=== PATIENT | female | born 1970 | race African-American/Black ===

== ENCOUNTER → 2020-06-19 | Outpatient (CLI) | payer SELFPAY ==
[2020-06-19 09:53] LABS: ALBUMIN 4.6 g/dL (3.5-5.0); ALKALINE PHOSPHATASE 63 U/L (38-126); ANION GAP 7 (5-19); ASPARTATE AMINO TRANSFERASE 28 U/L (14-36); BILIRUBIN,DIRECT 0.1 mg/dL (0.0-0.4); BILIRUBIN,TOTAL 0.5 mg/dL (0.2-1.3); BLOOD UREA NITROGEN 11 mg/dL (7-20); CALCIUM 10.3 mg/dL (8.4-10.2); CARBON DIOXIDE 31 mmol/L (22-30); CHLORIDE 103 mmol/L (98-107); CHOLESTEROL 242.57 mg/dL (0-200); GLUCOSE 114 mg/dL (75-110); POTASSIUM 4.2 mmol/L (3.6-5.0); TOTAL PROTEIN 7.8 g/dL (6.3-8.2); TRIGLYCERIDES 58 mg/dL (<150)
[2020-06-19 10:00] LABS: ABSOLUTE BASOPHILS # (AUTO) 0.1 10^3/uL (0.0-0.2); ABSOLUTE LYMPHOCYTES (AUTO) 1.3 10^3/uL (0.5-4.7); ABSOLUTE MONOCYTES (AUTO) 0.2 10^3/uL (0.1-1.4); ABSOLUTE NEUT (AUTO) 1.7 10^3/uL (1.7-8.2); BASOPHILS % (AUTO) 1.6 % (0-2); EOSINOPHILS % (AUTO) 1.4 % (0-6); HEMOGLOBIN 11.5 g/dL (12.0-15.5); LYMPHOCYTES % (AUTO) 39.5 % (13-45); MEAN CORPUSCULAR HEMOGLOBIN 25.2 pg (27.0-33.4); MEAN CORPUSCULAR HGB CONC 31.9 g/dL (32.0-36.0); MEAN CORPUSCULAR VOLUME 79 fl (80-97); MONOCYTES % (AUTO) 7.4 % (3-13); RED BLOOD COUNT 4.57 10^6/uL (3.72-5.28); RED CELL DISTRIBUTION WIDTH 16.1 % (11.5-14.0); SEGMENTED NEUTROPHILS % (AUTO) 50.1 % (42-78); TOTAL CELLS COUNTED % (AUTO) 100 %; WHITE BLOOD COUNT 3.3 10^3/uL (4.0-10.5)
[2020-06-19 10:04] LABS: DIRECT LDL 86 mg/dL (<100)
[2020-06-19 10:17] LABS: PLATELET COUNT 282 10^3/uL (150-450)
[2020-06-20 07:12] LABS: FOLLICLE STIMULATING HORMONE 93.1 mIU/mL (.); LUTEINIZING HORMONE 48.7 mIU/mL (.)
== END ==
LOC: LAB 09:10
PROVIDERS: ATTEND Obstetrics & Gynecology
DX: Z11.51 Encounter for screening for human papillomavirus (HPV) (principal); Z12.4 Encounter for screening for malignant neoplasm of cervix; Z13.220 Encounter for screening for lipoid disorders; Z13.0 Encounter for screening for diseases of the blood and blood-forming organs and certain disorders involving the immune mechanism; Z13.1 Encounter for screening for diabetes mellitus; Z13.6 Encounter for screening for cardiovascular disorders; N95.1 Menopausal and female climacteric states
CPT/HCPCS: 36415; 80053; 80061; 82306; 82670; 83001; 83002; 83036; 84443; 85025; 87624; 88142

== ENCOUNTER → 2020-06-21 | Outpatient (CLI) | payer SELFPAY ==
[~2020-06-21] MED LIST: COVID-19 VACCINE (PFIZER)/PF 30 MCG/0.3 ML VIAL IM ONE; EPINEPHRINE INJ/PF 1 MG/1 ML AMPULE IM PRN
== END ==
LOC: EMPHEALTH 10:28
PROVIDERS: ATTEND Internal Medicine
DX: Z23 Encounter for immunization (principal)
CPT/HCPCS: 91300

== ENCOUNTER → 2020-07-10 | Outpatient (CLI) | payer SELFPAY | LOC: EMPHEALTH 13:41 | PROVIDERS: ATTEND Internal Medicine | DX: Z23 Encounter for immunization (principal) | CPT/HCPCS: 91300 ==